=== PATIENT | male | born 2000 | race Two or more races ===

== ENCOUNTER 2024-03-10 18:49 | Emergency (ER) | payer OTHER ==
[~2024-03-10] VITALS: Ht 170.2 cm; Wt 105.8 kg
[2024-03-10] MEDS: ALBUTEROL SULF 2.5 MG/0.5ML(0.5%) NEB SOLN NEB ONE (20:05)
[2024-03-10] MEDS: IPRATROPIUM BROM 0.5 MG/2.5ML INH SOL NEB ONE (20:05)
[2024-03-10] MEDS: IBUPROFEN 600 MG TAB PO ONE (20:13)
[2024-03-10] MEDS: DexAMETHasone SOD PHOS 10MG/1ML VIAL INJ IM ONE (20:13)
[2024-03-10] MEDS: cefTRIAXone SOD 1,000 MG VL IM ONE (20:14)
[2024-03-10 20:45] VITALS: BP 127/82; PULSE 99; RESP 18; TEMP 98.7; O2SAT 97
[2024-03-10 20:52] LABS: Hematocrit 47.7 % (41.0-53.0); Hemoglobin 16.3 g/dL (13.5-17.5); Mean Corpuscular Hemoglobin 31.7 pg (28.0-32.0); Mean Corpuscular Hgb Conc. 34.2 g/dL (32.0-36.0); Mean Corpuscular Volume 92.6 fL (80.0-100.0); Red Blood Cells 5.15 10^6/uL (4.5-5.90); Red Cell Distribution Width 12.8 % (11.8-14.3); White Blood Cell 9.6 10^3/uL (4.4-10.8)
[2024-03-10 21:03] LABS: Basophils % (manual) 0 (0.0-2.0); Blast Cells 0; Eosinophils % (manual) 0 (0-7); Metamyelocytes % 0; Myelocytes % 0; Promyelocytes % 0; Reactive Lymphocytes 0
[2024-03-10 21:03] LABS: COVID19 ANTIGEN SOFIA FIA NEGATIVE (NEGATIVE)
[2024-03-10 21:13] LABS: Alanine Aminotransferase 472 U/L (7-40); Albumin 4.7 g/dL (3.2-4.8); Alkaline Phosphatase 79 U/L (46-116); Anion Gap 10 (5-15); Aspartate Aminotransferase 282 U/L (13-40); BUN/Creatinine Ratio 8.5 (10.0-20.0); Bilirubin, Total 0.8 mg/dL (0.2-1.0); Blood Urea Nitrogen 9 mg/dL (9-23); Calcium 9.7 mg/dL (8.5-10.1); Carbon Dioxide 22 mmol/L (20-30); Chloride 103 mmol/L (98-107); Glucose 105 mg/dL (74-106); Potassium 3.9 mmol/L (3.5-5.1); Sodium 135 mmol/L (136-145); Total Protein 8.1 g/dL (5.7-8.2)
[2024-03-10 21:40] LABS: Band Neutrophils % (manual) 2; Large Platelets FEW; Lymphocytes % (manual) 13 (10.0-50.0); Monocytes % (manual) 20 (0-12); Platelet Estimate Adequate; RBC Morphology Normal
[2024-03-10] MEDS ORDERED: PRED20TA2 PO (21:53)
[2024-03-10] MEDS ORDERED: IBUP1TAB5 PO (21:53)
[2024-03-10] MEDS ORDERED: AZITTAB PO (21:53)
[2024-03-10] MEDS ORDERED: BENZ200C64 PO (21:53)
[2024-03-10] MEDS ORDERED: ALBUAER3 IN (21:53)
[2024-03-10] MEDS ORDERED: DEXT1LOZ10 MT (21:53)
== END 2024-03-10 22:18 | disposition home or self-care (01) ==
LOC: ER 18:49 → EEVIPCON 18:49 → ER 22:18
DX: J03.90 Acute tonsillitis, unspecified (principal); J20.9 Acute bronchitis, unspecified; R50.9 Fever, unspecified; R74.8 Abnormal levels of other serum enzymes; Z20.822 Contact with and (suspected) exposure to COVID-19
CPT/HCPCS: 36415; 71045; 80053; 85007; 85027; 87426; 94640; 96372; 99284; J0696; J1100; J7644